=== PATIENT | male | born 2000 | race Two or more races ===

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

== ENCOUNTER 2018-11-01 16:07 | Emergency (ER) | payer MEDICAID ==
[~2018-11-01] VITALS: Ht 172.7 cm; Wt 79.4 kg
[2018-11-01 16:20] VITALS: BP 122/80
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
[2018-11-01] MEDS ORDERED: NKM (16:39)
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
[2018-11-01] MEDS ORDERED: IBUPROFEN600 MG ORAL (17:50)
[2018-11-01 18:00] VITALS: BP 123/86
--- NOTE | 2018-11-01 18:00 | NUR ---
ER DISCHARGE NOTE: Patient is cleared to be discharged per ERMD, pt is aox4, on room air, with stable vital signs. pt was given dc and prescription instructions, pt was able to verbalize understanding, immobilizer applied on Rt wrist. pt id band removed. pt is able to ambulate with steady gait. pt took all belongings.
--- NOTE | 2018-11-02 10:04 | Diagnostic Imaging Report ---
Clinical Indication:] Wrist pain Technique: 3 views of the right wrist Comparison: None Findings: No acute fractures. No dislocations. The joint spaces are preserved Impression: Negative
== END 2018-11-01 18:00 | disposition home or self-care (01) ==
LOC: EMR 17:08
DX: S63.501A Unspecified sprain of right wrist, initial encounter (principal); V18.0XXA Pedal cycle driver injured in noncollision transport accident in nontraffic accident, initial encounter; Y93.55 Activity, bike riding; Y92.9 Unspecified place or not applicable
CPT/HCPCS: 29125; 99283

== ENCOUNTER 2018-11-08 21:59 | Emergency (ER) | payer MEDICAID ==
[~2018-11-08] VITALS: Ht 172.7 cm; Wt 79.4 kg
[~2018-11-08 21:59] MED LIST changes: +NKM
--- NOTE | 2018-11-08 22:12 | NUR ---
ED Nurse Note: pt walked in due to right hand pain and follow up. pt was seen in the ed last . Pt is AO x4 times, VSS, on room air no distress. EHD seen Pt at bedside.
[2018-11-08 22:15] VITALS: BP 124/80
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
[2018-11-08 22:45] VITALS: BP 124/80
--- NOTE | 2018-11-08 22:45 | NUR ---
ER DISCHARGE NOTE: Patient is cleared to be discharged per ERMD, pt is aox4, on room air, with stable vital signs. pt was given dc and prescription instructions, pt was able to verbalize understanding, pt id band and removed without complications. pt is able to ambulate with steady gait. pt took all belongings.
== END 2018-11-08 22:45 | disposition home or self-care (01) ==
LOC: EMR 22:21
DX: S62.024A Nondisplaced fracture of middle third of navicular [scaphoid] bone of right wrist, initial encounter for closed fracture (principal); V18.0XXA Pedal cycle driver injured in noncollision transport accident in nontraffic accident, initial encounter; Y93.55 Activity, bike riding; Y92.9 Unspecified place or not applicable
CPT/HCPCS: 99283